=== PATIENT | male | born 1940 | race American Indian/Alaskan Native ===

== ENCOUNTER 2017-02-15 17:27 | Inpatient (IN) | payer MEDICARE ==
[2017-02-15] MEDS ORDERED: NACL 0.9% 500 ML 500 ML IV ONE (18:07)
[2017-02-15 19:30] LABS: Basophils % (Auto) 0.7 % (0.0-1.8); Eosinophils % (Auto) 2.2 % (0.0-4.3); Hematocrit 35.8 % (35.5-45.6); Mean Corpuscular HGB Conc 34 % (32-34); Mean Corpuscular Hemoglobin 32 pg (28-32); Mean Corpuscular Volume 96 fl (84-94); Platelet Count 252 K/mm3 (140-440); Red Blood Count 3.75 M/mm3 (3.65-5.03); Red Cell Distribution Width 14.9 % (13.2-15.2); White Blood Count 6.7 K/mm3 (4.5-11.0)
[2017-02-15 19:42] LABS: INR 1.05 (0.87-1.13)
[2017-02-15 19:51] LABS: Albumin 3.5 g/dL (3.9-5); Albumin/Globulin Ratio 0.8 %; Bilirubin,Total 0.5 mg/dL (0.1-1.2); Calcium 8.9 mg/dL (8.4-10.2); Chloride 104.8 mmol/L (98-107); Total Protein 7.7 g/dL (6.3-8.2)
[2017-02-15 20:14] LABS: Potassium 4.3 mmol/L (3.6-5.0)
[2017-02-15 22:30] LABS: Bilirubin,Urine NEG (Negative); Blood,Urine NEG (Negative); Ketones,Urine NEG (Negative); Leukocyte Esterase,Urine NEG (Negative); Nitrite,Urine NEG (Negative); Protein,Urine <15 mg/dL mg/dL (Negative); RBC,Urine < 1.0 /HPF (0.0-6.0); Urobilinogen,Urine < 2.0 mg/dL (<2.0)
--- NOTE | 2017-02-16 01:25 | Emergency Department Report ---
ED Extremity Problem HPI - General Chief complaint: Extremity Problem,Nontraumatic Stated complaint: RT LEG SWELLING Time Seen by Provider: 02/15/17 19:49 Source: patient, EMS Mode of arrival: Stretcher Limitations: Physical Limitation - History of Present Illness MD Complaint: extremity pain, extremity swelling -: Gradual, week(s) (2) Location: right, lower extremity History of Same: Yes -: Yes myalgia Radiation: distal Severity scale (0 -10): 5 Quality: burning, sharp Consistency: constant Improves with: immobilization, elevation Worsens with: palpation Associated Symptoms: denies other symptoms - Related Data Home Medications Medication Instructions Recorded Confirmed Last Taken Aspirin [Baby Aspirin] 81 mg PO DAILY 03/23/13 03/23/13 03/23/13 Baclofen [Lioresal] 10 mg PO BID 03/23/13 03/23/13 03/23/13 Furosemide [Furosemide ORAL LIQ] 40 mg PO QDAY 03/23/13 03/23/13 03/23/13 Gabapentin [Neurontin] 300 mg PO Q8H 03/23/13 03/23/13 03/23/13 Iron 18 mg PO QDAY 03/23/13 03/23/13 03/23/13 Potassium Chloride 10 meq PO QDAY 03/23/13 03/23/13 03/23/13 amLODIPine [Norvasc] 10 mg PO DAILY 03/23/13 03/23/13 03/23/13 Allergies Allergy/AdvReac Type Severity Reaction Status Date / Time diclofenac [Diclofenac] Allergy Rash Verified 03/23/13 22:50 ED Review of Systems ROS: Stated complaint: RT LEG SWELLING Other details as noted in HPI Constitutional: denies: chills, fever Eyes: denies: eye pain, eye discharge, vision change ENT: denies: ear pain, throat pain Respiratory: denies: cough, shortness of breath, wheezing Cardiovascular: denies: chest pain, palpitations Endocrine: no symptoms reported Gastrointestinal: denies: abdominal pain, nausea, diarrhea Genitourinary: denies: urgency, dysuria Musculoskeletal: denies: back pain, joint swelling, arthralgia Skin: rash, lesions Neurological: denies: headache, weakness, paresthesias Psychiatric: denies: anxiety, depression Hematological/Lymphatic: denies: easy bleeding, easy bruising ED Past Medical Hx - Past Medical History Previous Medical History?: Yes Hx Hypertension: Yes Hx Diabetes: Yes Additional medical history: spinal disorder - Surgical History Past Surgical History?: Yes Additional Surgical History: c1-c4 fusion carpal tunnel bilat decompression nerves hands - Social History Smoking Status: Never Smoker Substance Use Type: None - Medications Home Medications: Home Medications Medication Instructions Recorded Confirmed Last Taken Type Aspirin [Baby Aspirin] 81 mg PO DAILY 03/23/13 03/23/13 03/23/13 History Baclofen [Lioresal] 10 mg PO BID 03/23/13 03/23/13 03/23/13 History Furosemide [Furosemide ORAL LIQ] 40 mg PO QDAY 03/23/13 03/23/13 03/23/13 History Gabapentin [Neurontin] 300 mg PO Q8H 03/23/13 03/23/13 03/23/13 History Iron 18 mg PO QDAY 03/23/13 03/23/13 03/23/13 History Potassium Chloride 10 meq PO QDAY 03/23/13 03/23/13 03/23/13 History amLODIPine [Norvasc] 10 mg PO DAILY 03/23/13 03/23/13 03/23/13 History ED Physical Exam - General Limitations: Physical Limitation General appearance: alert, in no apparent distress - Head Head exam: Present: atraumatic, normocephalic - Eye Eye exam: Present: normal appearance - ENT ENT exam: Present: mucous membranes moist - Neck Neck exam: Present: normal inspection - Respiratory Respiratory exam: Present: normal lung sounds bilaterally, other (Murmur 3/6 systolic ejection). Absent: respiratory distress - Cardiovascular Cardiovascular Exam: Present: regular rate, normal rhythm. Absent: systolic murmur, diastolic murmur, rubs, gallop - GI/Abdominal GI/Abdominal exam: Present: soft, normal bowel sounds - Rectal Rectal exam: Present: deferred - Extremities Exam Extremities exam: Present: normal inspection - Back Exam Back exam: Present: normal inspection - Neurological Exam Neurological exam: Present: alert, oriented X3 - Psychiatric Psychiatric exam: Present: normal affect, normal mood - Skin Skin exam: Present: warm, dry, intact, normal color. Absent: rash ED Course Vital Signs 02/15/17 02/15/17 02/15/17 18:03 20:00 21:16 Temperature 97.7 F Pulse Rate 70 72 Respiratory 16 20 20 Rate Blood Pressure 162/73 Blood Pressure 168/77 [Left] O2 Sat by Pulse 100 97 100 Oximetry 02/15/17 02/15/17 22:00 23:55 Temperature Pulse Rate 73 72 Respiratory 20 20 Rate Blood Pressure Blood Pressure 171/81 167/72 [Left] O2 Sat by Pulse 98 98 Oximetry - Consultations Consultation #1: 02/16/17 01:22 Called hospitalist and patient to be admitted due to cellulitis and concern for osteomyelitis with elevated sed rate in the 60s. ED Medical Decision Making - Lab Data Result diagrams: 02/15/17 19:20 02/15/17 19:20 - Radiology Data Radiology results: pending interpreted by me: View obscured by tissue thickness but 2nd digit distal joint may be lytic. - Medical Decision Making We will do clindamycin IV here and admit patient for cellulitis and possible osteomyelitis. D/W Hospitalist. Critical care attestation.: If time is entered above; I have spent that time in minutes in the direct care of this critically ill patient, excluding procedure time. ED Disposition Clinical Impression: Cellulitis of right leg, Chronic venous hypertension (idiopathic) with other complications of right lower extremity, Osteomyelitis of ankle or foot Disposition: OP ADMIT IP TO THIS HOSP Is pt being admited?: Yes Does the pt Need Aspirin: No Condition: Stable Referrals: PRIMARY CARE, [Primary Care Provider] - 3-5 Days
[2017-02-16] MEDS ORDERED: CATAPRES PO ONE (02:11)
[2017-02-16] MEDS ORDERED: MORPHINE IV PRN (02:40)
[2017-02-16] MEDS ORDERED: ZOFRAN IV PRN (02:41)
[2017-02-16] MEDS ORDERED: TYLENOL PO PRN (02:41)
[2017-02-16] MEDS ORDERED: NACL 0.9% 1000 ML 1,000 ML IV SCH ×2 (03:00→18:00)
[2017-02-16] MEDS ORDERED: VANCOMYCIN PHARMACY TO DOSE IV SCH (03:00)
[2017-02-16] MEDS ORDERED: VANCOMYCIN 2,000 MG in NACL 0.9% 500 ML 500 ML IV ONE (04:00)
[2017-02-16] MEDS: NEURONTIN PO SCH ×3 (04:19→21:57)
--- NOTE | 2017-02-16 04:29 | History and Physical Report ---
CHIEF COMPLAINT: Pain, swelling and foul smelling of the right lower extremity. HISTORY OF PRESENT ILLNESS: The patient is a 76-year-old male who said he has not been taking care of his lower extremity that has had some problems before and presented with pain and swelling with foul smelling of the right lower extremity. The patient also has difficulty ambulating with the right lower extremity. There was no history of recent trauma. The patient denied history of fever or chills. Denies history of shortness of breath or chest pain. PAST MEDICAL HISTORY: Pertinent for hypertension, spinal disorder. The Emergency Room record shows that patient has past history of diabetes mellitus. The patient denied history of diabetes mellitus. States he has also past history of deep vein thrombosis. PAST SURGICAL HISTORY: Pertinent for C1 through C4 fusion surgery. Also carpal tunnel surgery bilaterally. FAMILY HISTORY: Noncontributory. SOCIAL HISTORY: The patient does not smoke, does not drink alcohol and does not use illicit drugs. MEDICATIONS: The patient is on aspirin 81 mg daily, baclofen 10 mg by mouth twice daily, furosemide 40 mg by mouth daily, Neurontin 300 mg by mouth every 8 hours, iron tablet 18 mg by mouth daily, potassium chloride 10 mEq by mouth daily, Norvasc 10 mg by mouth daily. ALLERGIES: THE PATIENT IS ALLERGIC TO DICLOFENAC. REVIEW OF SYSTEMS: CONSTITUTIONAL: There is no fever, no chills, no diaphoresis. HEENT: There is no headache or sore throat. CARDIOVASCULAR: There is no chest pain or orthopnea. RESPIRATORY: There is no shortness of breath or cough. GASTROINTESTINAL: There is no nausea, no vomiting. No abdominal pain, diarrhea or constipation. NEUROLOGICAL: There is no numbness, no dizziness, no altered mental status. MUSCULOSKELETAL: Swelling in the right lower extremity noted. Pain in the right lower extremity noted. Redness of the right lower extremity noted. Foul smelling nature of the right extremity noted. DERMATOLOGICAL: Redness of the right lower extremity noted. No fluid, no itching. GENITOURINARY: There is no dysuria, hematuria, or flank pain. Rest of system review is normal. PHYSICAL EXAMINATION: GENERAL: At the time of exam, the patient was found to be alert, oriented x 3 and not in acute distress. VITAL SIGNS: Shows normal temperature with pulse of 66, respirations 18, blood pressure 191/78, O2 sat of 97% on room air. HEENT: Showed pupils to be equal, round, reactive to light and accommodation. Extraocular muscles are intact. NECK: Supple with no JVD or carotid bruit. CARDIOVASCULAR: Show first and second heart sounds with no gallops or murmur. RESPIRATORY: Showed good air entry on both sides of the lungs with no abnormal breath sounds. GASTROINTESTINAL: Show abdomen to be full, soft, nontender with no organomegaly or rigidity. NEUROLOGIC: Shows no focal deficit. MUSCULOSKELETAL: Shows swelling of the right lower extremity with redness and white patches on the medication application put on the right lower extremity, and also the right lower extremity is foul smelling. DERMATOLOGICAL: Show redness of the right lower extremity. GENITOURINARY: Show no costovertebral angle tenderness. PERTINENT LABORATORY AND IMAGING STUDIES: The patient had urinalysis done that came back unremarkable. The patient's chemistry shows elevated BUN of 31 with elevated creatinine of 2.3 and slightly low albumin of 3.5. The patient's CBC showed normal white count, normal hemoglobin and normal hematocrit. CBC differential showed elevated monocyte count of 9.2%. IMAGING STUDIES: The patient had x-ray of the right foot done that shows denaturing of the bones suspicious for possible osteomyelitis. DIAGNOSES: 1. Cellulitis of the right lower extremity. Rule out osteomyelitis. 2. Renal failure. PLAN: The patient will be admitted to medical floor and will have basic metabolic panel done in the morning. The patient will be on Tylenol 650 mg by mouth every 4 hours for fever and headache and will be on IV Zosyn 3.375 grams q. 6 hours. The patient will also be on IV vancomycin with pharmacy to dose and will be on IV normal saline at 75 mL an hour. The patient will also be on IV Zofran 4 mg every 8 hours as needed for nausea and vomiting and IV morphine 2 mg every 4 hours for pain. DVT prophylaxis will be through heparin 5000 units q. 12 hours subcutaneously. The patient's home medications will be reconciled and started accordingly. The patient will have Accu-Chek before meals and at bedtime until we determine whether the patient has diabetes or not. Meanwhile, the patient will be on renal diet for now. The patient will have wound care nurse consult for management of the right lower extremity wound. JOB# [id number] OCN/NTS
[2017-02-16] MEDS ORDERED: ZOSYN/NS 3.375GM/50ML 3.375 GM/50 ML BAG IV SCH (06:00)
--- NOTE | 2017-02-16 09:46 | XRay Report ---
AP CHEST: HISTORY: Sepsis No comparison. Mild to moderate cardiomegaly is evident. Normal pulmonary vascularity. There is a focal opacity in the lingula which probably represents scarring although other etiology cannot be excluded. There is no evidence for pneumonia, pleural effusion or pneumothorax. The bony structures are unremarkable. IMPRESSION: Cardiomegaly. Focal opacity in the lingula which is most likely chronic. Consider followup CT chest with contrast.
--- NOTE | 2017-02-16 09:46 | XRay Report ---
RIGHT FOOT, 3 VIEWS History: Foot infection, swelling. Findings: No comparison. The soft tissues are severely abnormal. There appears to be diffuse skin thickening or edema. This may represent a severe cellulitis. The bony structures are poorly evaluated on this exam secondary to the diffuse skin abnormalities. Grossly there is no evidence for fracture, dislocation or erosive joint pathology. Subtle findings of osteomyelitis cannot be excluded on this exam. No advanced bony destruction. Impression: No definite findings of osteomyelitis on x-ray. If further evaluation is needed, MRI with contrast or triple phase bone scan may prove useful. Probable cellulitis.
[2017-02-16] MEDS: ZOSYN/NS 2.25 GM/50ML 2.25 GM/50 ML BAG IV SCH ×3 (10:09→18:00)
[2017-02-16 13:46] LABS: Calcium 9.1 mg/dL (8.4-10.2)
--- NOTE | 2017-02-16 15:45 | Event Note ---
Date: 02/16/17 Pt seen and examined A/P - Cellulitis right foot with possible dry gangrene. Xray showed no evidence of Osteo. Will get MRI. surgical consult obtained continue with local wound care. - Acute on chronic renal failure - iv hydration. Renal US nephrology consult. Nephrology consult - Dehydration with hypernatremia and hyperchloremia - iv hydration
--- NOTE | 2017-02-16 16:40 | Consultation ---
History of Present Illness - Reason for Consult Consult date: 02/16/17 acute renal failure - History of Present Illness Mr. Sena is a 76yo with hypertension who presented to the ED with right leg swelling, pain and odor. He reports chronic lower extremity edema and wears compression stockings. He reports a prior history of kidney disease. He states that he had been referred to a milk treater in the past but cannot recall name. He denies fever, chills, nausea, vomiting, chest pain and SOB. He denies a history of NSAID use, hemoptysis, hematuria, epistaxis. Past History Past Medical History: hypertension, other (reports hx of DVT and carotid artery disease) Past Surgical History: Other (cervial spine) Social history: no significant social history Family history: no significant family history Medications and Allergies Allergies Allergy/AdvReac Type Severity Reaction Status Date / Time diclofenac [Diclofenac] Allergy Rash Verified 03/23/13 22:50 Home Medications Medication Instructions Recorded Confirmed Last Taken Type Baclofen [Lioresal] 10 mg PO BID 03/23/13 02/16/17 03/23/13 History Furosemide [Lasix] 20 mg PO DAILY 02/16/17 02/16/17 Unknown History Losartan [Cozaar] 50 mg PO QDAY 02/16/17 02/16/17 Unknown History Active Meds: Active Medications Acetaminophen (Tylenol) 650 mg PO Q4H PRN PRN Reason: For Pain/Fever/Headache Amlodipine Besylate (Norvasc) 10 mg PO DAILY [facility] Aspirin (Baby Aspirin) 81 mg PO DAILY [facility] Ferrous Sulfate (Feosol) 325 mg PO QDAY [facility] Furosemide (Lasix) 20 mg PO DAILY [facility] Gabapentin (Neurontin) 300 mg PO Q8HR [facility] Last Admin: 02/16/17 04:19 Dose: 300 mg Heparin Sodium (Porcine) (Heparin) 5,000 unit SUB-Q Q12HR [facility] Piperacillin Sod/Tazobactam Sod (Zosyn/Ns 2.25 Gm/50ml) 2.25 gm in 50 mls @ 100 mls/hr IV Q6HR [facility] Last Admin: 02/16/17 12:33 Dose: Not Given Dextrose/Sodium Chloride (D5/0.45ns) 1,000 mls @ 125 mls/hr IV DIRECT [facility] Influenza Virus Vaccine Quadrival (Fluarix Quad [id number](36 Mos+)) 0.5 ml IM .ONCE ONE Stop: 02/17/17 12:01 Losartan Potassium (Cozaar) 50 mg PO QDAY [facility] Morphine Sulfate (Morphine) 2 mg IV Q4H PRN PRN Reason: Pain, Moderate (4-6) Ondansetron HCl (Zofran) 4 mg IV Q8H PRN PRN Reason: Nausea And Vomiting Sodium Hypochlorite (Dakin's Full Strength) 1 applic TP Q12H [facility] Vancomycin HCl (Vancomycin Pharmacy To Dose) 1 each IV PKCONSULT [facility] PRN Reason: Protocol Review of Systems All systems: negative Musculoskeletal: other (right leg swelling, pain, odor) Exam - Vital Signs Vital signs: Vital Signs Temp Pulse Resp BP Pulse Ox 97.7 F 70 16 162/73 100 02/15/17 18:03 02/15/17 18:03 02/15/17 18:03 02/15/17 18:03 02/15/17 18:03 - General Appearance General appearance: well-developed, well-nourished EENT: ATNC Respiratory: Clear to Ascultation Heart: regular, S1S2 Gastrointestinal: Present: obese. Absent: tenderness, distended Integumentary: hyperpigmentation, hyperkeratosis Musculoskeletal: Present: other (bilateral leg edema; right lower extremity w/ malodorous, hyperkeratosis, hyperpigmented skin ) Psychiatric: cooperative Results - Lab Results 02/15/17 19:20 02/16/17 12:32 Most recent lab results Calcium 9.1 mg/dL (8.4-10.2) 02/16/17 12:32 Assessment and Plan Impression * Acute kidney injury secondary to prerenal azotemia vs probable chronic kidney disease * Lower extremity cellulitis * R/O osteomyelitis * Hypertension * Bradycardia * Hypernatermia Plan: * Patient likely with underlying CKD related to hypertensive nephropathy * Agree with IVF for volume repletion * Will obtain serologic work up and urine studies * Await renal u/s * Abx per primary team * Dose medications for renal function * Avoid potential nephrotoxins * Telemetry monitoring ordered in light of HR in 40-50s. He is not receiving in AV liam blocking agents (only received clonidine 0.1 x 1 dose at 0300). Consider cardiology evaluation if bradycardia persists.
--- NOTE | 2017-02-16 16:49 | Consultation ---
History of Present Illness Consult date: 02/16/17 Reason for consult: other - History of present illness History of present illness: 76 yo male with purulent drainage from his right heel. He does not have DM but does have a chronic skin condition. He is not sure what the skin condition is called. Past History Past Medical History: hypertension Medications and Allergies Allergies Allergy/AdvReac Type Severity Reaction Status Date / Time diclofenac [Diclofenac] Allergy Rash Verified 03/23/13 22:50 Home Medications Medication Instructions Recorded Confirmed Last Taken Type Baclofen [Lioresal] 10 mg PO BID 03/23/13 02/16/17 03/23/13 History Furosemide [Lasix] 20 mg PO DAILY 02/16/17 02/16/17 Unknown History Losartan [Cozaar] 50 mg PO QDAY 02/16/17 02/16/17 Unknown History Active Meds: Active Medications Acetaminophen (Tylenol) 650 mg PO Q4H PRN PRN Reason: For Pain/Fever/Headache Amlodipine Besylate (Norvasc) 10 mg PO DAILY [facility] Aspirin (Baby Aspirin) 81 mg PO DAILY [facility] Ferrous Sulfate (Feosol) 325 mg PO QDAY [facility] Furosemide (Lasix) 20 mg PO DAILY [facility] Gabapentin (Neurontin) 300 mg PO Q8HR [facility] Last Admin: 02/16/17 04:19 Dose: 300 mg Heparin Sodium (Porcine) (Heparin) 5,000 unit SUB-Q Q12HR [facility] Piperacillin Sod/Tazobactam Sod (Zosyn/Ns 2.25 Gm/50ml) 2.25 gm in 50 mls @ 100 mls/hr IV Q6HR [facility] Last Admin: 02/16/17 12:33 Dose: Not Given Dextrose/Sodium Chloride (D5/0.45ns) 1,000 mls @ 125 mls/hr IV DIRECT [facility] Influenza Virus Vaccine Quadrival (Fluarix Quad [id number](36 Mos+)) 0.5 ml IM .ONCE ONE Stop: 02/17/17 12:01 Losartan Potassium (Cozaar) 50 mg PO QDAY [facility] Morphine Sulfate (Morphine) 2 mg IV Q4H PRN PRN Reason: Pain, Moderate (4-6) Ondansetron HCl (Zofran) 4 mg IV Q8H PRN PRN Reason: Nausea And Vomiting Sodium Hypochlorite (Dakin's Full Strength) 1 applic TP Q12H [facility] Vancomycin HCl (Vancomycin Pharmacy To Dose) 1 each IV PKCONSULT [facility] PRN Reason: Protocol Review of Systems All systems: negative Exam Vital Signs Temp Pulse Resp BP Pulse Ox 97.7 F 70 16 162/73 100 02/15/17 18:03 02/15/17 18:03 02/15/17 18:03 02/15/17 18:03 02/15/17 18:03 - General physical appearance Positive: well developed, well nourished, no distress - Eyes Positive: PERRL, normal occular movement - ENT Positive: normal pinna, normal nares, normal mucosa, no hearing loss, no congestion - Neck Positive: no masses, no bruits, trachea midline, no venous distension - Respiratory Positive: normal expansion, normal respiratory effort, clear to auscultation - Cardiovascular Rhythm: regular Heart Sounds: Present: S1 & S2. Absent: rub, click - Extremities Extremities: no ischemia, pulses symmetrical, No edema - Abdomen Abdomen: Present: soft, bowel sounds normal. Absent: tender, distended Hernia: none - Genitourinary Male Genitourinary: deferred - Integumentary other (The skin of his right leg is covered with thick, somewhat soft hyperkeratinized tissue which can be fairly easily pulled off in flakes. His right heel is oozing purulent fluid underneath the thick, hyperkeratinized tissue.) - Neurologic Neurologic: alert and oriented to time, place and person, motor strength and sensation are grossly intact - Musculoskeletal normal gait, normal posture - Psychiatric Psychiatric: appropriate mood/affect, intact judgment & insight Results - Labs 02/15/17 19:20 02/16/17 12:32 Abnormal lab results 02/16/17 Range/Units 12:32 Sodium 149 H (137-145) mmol/L Chloride 108.0 H (98-107) mmol/L BUN 27 H (9-20) mg/dL Creatinine 2.1 H (0.8-1.5) mg/dL Diabetes panel 02/16/17 Range/Units 12:32 Sodium 149 H (137-145) mmol/L Potassium 4.0 (3.6-5.0) mmol/L Chloride 108.0 H (98-107) mmol/L Carbon Dioxide 25 (22-30) mmol/L BUN 27 H (9-20) mg/dL Creatinine 2.1 H (0.8-1.5) mg/dL Glucose 97 (75-100) mg/dL Calcium 9.1 (8.4-10.2) mg/dL Calcium panel 02/16/17 Range/Units 12:32 Calcium 9.1 (8.4-10.2) mg/dL Pituitary panel 02/16/17 Range/Units 12:32 Sodium 149 H (137-145) mmol/L Potassium 4.0 (3.6-5.0) mmol/L Chloride 108.0 H (98-107) mmol/L Carbon Dioxide 25 (22-30) mmol/L BUN 27 H (9-20) mg/dL Creatinine 2.1 H (0.8-1.5) mg/dL Glucose 97 (75-100) mg/dL Calcium 9.1 (8.4-10.2) mg/dL Adrenal panel 02/16/17 Range/Units 12:32 Sodium 149 H (137-145) mmol/L Potassium 4.0 (3.6-5.0) mmol/L Chloride 108.0 H (98-107) mmol/L Carbon Dioxide 25 (22-30) mmol/L BUN 27 H (9-20) mg/dL Creatinine 2.1 H (0.8-1.5) mg/dL Glucose 97 (75-100) mg/dL Calcium 9.1 (8.4-10.2) mg/dL Assessment and Plan 1) Right heel abscess/infection 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 2) NPO after MN 3) I will send some of the hyperkeratinized tissue for tissue dx.
[2017-02-16] MEDS ORDERED: COZAAR PO SCH (17:00)
[2017-02-16] MEDS ORDERED: D5/0.45NS 1,000 ML IV SCH (17:00)
[2017-02-16] MEDS: BABY ASPIRIN PO SCH (18:00)
[2017-02-16] MEDS: FEOSOL PO SCH (18:00)
[2017-02-16] MEDS: NORVASC PO SCH (18:00)
[2017-02-16] MEDS: HEPARIN SUB-Q SCH ×2 (19:00→21:57)
[2017-02-16] MEDS ORDERED: DAKIN'S HALF STRENGTH TP PRN (19:45)
[2017-02-16] MEDS ORDERED: DAKIN'S FULL STRENGTH TP SCH (22:00)
[2017-02-17] MEDS: ZOSYN/NS 2.25 GM/50ML 2.25 GM/50 ML BAG IV SCH ×4 (00:30→22:56)
[2017-02-17] MEDS: NEURONTIN PO SCH ×3 (05:27→22:55)
[2017-02-17 06:50] LABS: Basophils % (Auto) 0.6 % (0.0-1.8); Eosinophils % (Auto) 2.9 % (0.0-4.3); Hematocrit 35.4 % (35.5-45.6); Hemoglobin 11.8 gm/dl (11.8-15.2); Mean Corpuscular HGB Conc 34 % (32-34); Mean Corpuscular Hemoglobin 32 pg (28-32); Mean Corpuscular Volume 95 fl (84-94); Platelet Count 221 K/mm3 (140-440); Red Blood Count 3.74 M/mm3 (3.65-5.03); Red Cell Distribution Width 14.7 % (13.2-15.2); White Blood Count 6.2 K/mm3 (4.5-11.0)
[2017-02-17 07:05] LABS: Albumin/Globulin Ratio 0.8 %; Bilirubin,Total 0.4 mg/dL (0.1-1.2); Calcium 8.7 mg/dL (8.4-10.2); Chloride 103.7 mmol/L (98-107); Potassium 3.8 mmol/L (3.6-5.0); Total Protein 6.6 g/dL (6.3-8.2)
--- NOTE | 2017-02-17 07:37 | Progress Note ---
Assessment and Plan Impression * Acute kidney injury secondary to prerenal azotemia vs probable chronic kidney disease * Lower extremity cellulitis * R/O osteomyelitis * Hypertension, uncontrolled * Bradycardia, persistent * Hypernatermia Plan: * Patient likely with underlying CKD related to hypertensive nephropathy * Continue IVF - will decrease reate * Await pending serologic work up and urine studies * Await renal u/s * Abx per primary team * Dose medications for renal function * Avoid potential nephrotoxins * Consider cardiology evaluation if bradycardia persists. Patient is not receiving AV liam blocking agents Subjective Date of service: 02/17/17 Objective - General Appearance General appearance: well-developed, well-nourished EENT: ATNC Respiratory: Present: Clear to Ascultation Cardiology: regular, S1S2 Gastrointestinal: no tenderness, no distended, obese Integumentary: hyperpigmentation (malodorous drainage of right LE), hyperkeratosis Musculoskeletal: other (Bilateral LE edema ) Psychiatric: cooperative - Lab 02/17/17 06:20 02/17/17 06:20 Most recent lab results Calcium 8.7 mg/dL (8.4-10.2) 02/17/17 06:20
--- NOTE | 2017-02-17 07:40 | Ultrasound Report ---
ULTRASOUND RENAL BILATERAL HISTORY: Acute renal failure. TECHNIQUE: transabdominal ultrasound with color Doppler interrogation. FINDINGS: The right kidney measures 11.2 x 7.0 x 6.0cm. Right renal cortex: 2.0cm. There are 4 simple appearing cysts in the mid to superior right kidney measuring 1.0 cm, 1.1 cm, 2.3 cm and 4.3 cm. The left kidney measures 11.0 x 8.3 x 5.2cm. Left renal cortex: 1.9cm. There are 5 simple appearing cysts in the mid to inferior left kidney measuring 1.3 cm, 1.9 cm, 2.2 cm, 2.7 cm, and 2.9 cm. Both kidneys demonstrate increased renal parenchymal echotexture consistent with nonspecific renal parenchymal disease. There is no evidence for nephrolithiasis, hydronephrosis, hypervascular mass or perinephric fluid. The bladder is partially distended and within normal limits. IMPRESSION: Multiple bilateral renal cysts. Echogenic kidneys consistent with nonspecific renal parenchymal disease. No obstructive uropathy.
[2017-02-17] MEDS ORDERED: LASIX PO SCH (10:00)
[2017-02-17] MEDS: BABY ASPIRIN PO SCH (10:06)
[2017-02-17] MEDS: NORVASC PO SCH (10:06)
[2017-02-17] MEDS: FEOSOL PO SCH (10:09)
[2017-02-17] MEDS: HEPARIN SUB-Q SCH ×2 (10:10→22:57)
--- NOTE | 2017-02-17 11:15 | Consultation ---
History of Present Illness - Reason for Consult Consult date: 02/17/17 foot infection Requesting physician: WARREN CURRAN - History of Present Illness 76 years old male with history of hypertension, admitted on due to worsening dry foot and leg swelling, tenderness, and drainage. Patient has dry leg lymphedema and was told to wear compressive stockings. He reports that after 2 weeks of wearing the stockings he noticed increase edema and drainage of foul- smelling secretion from the right foot. Patient denies any fever or chills now sure vomiting or diarrhea. Patient denies any shortness of breath cough or respiratory symptoms. In the emergency room, initial temperature was 97.7, HR 70, BP 162/73. WBC 6.7. CR 2.3. UA neg. Current Antimicrobials: Zosyn 02/16 Vancomycin 02/16 Microbiology: Blood cultures: 02/15 ngtd Urine cultures: 02/15 10-100K mixed Past History Past Medical History: hypertension, other (reports hx of DVT and carotid artery disease). denies: sarcoidosis (right foot lymphedema ) Past Surgical History: Other (cervial spine) Social history: no significant social history Family history: no significant family history Medications and Allergies Allergies Allergy/AdvReac Type Severity Reaction Status Date / Time diclofenac [Diclofenac] Allergy Rash Verified 03/23/13 22:50 Home Medications Medication Instructions Recorded Confirmed Last Taken Type Baclofen [Lioresal] 10 mg PO BID 03/23/13 02/16/17 03/23/13 History Furosemide [Lasix] 20 mg PO DAILY 02/16/17 02/16/17 Unknown History Losartan [Cozaar] 50 mg PO QDAY 02/16/17 02/16/17 Unknown History Active Meds: Active Medications Acetaminophen (Tylenol) 650 mg PO Q4H PRN PRN Reason: For Pain/Fever/Headache Amlodipine Besylate (Norvasc) 10 mg PO DAILY [facility] Last Admin: 02/17/17 10:06 Dose: 10 mg Aspirin (Baby Aspirin) 81 mg PO DAILY [facility] Last Admin: 02/17/17 10:06 Dose: 81 mg Ferrous Sulfate (Feosol) 325 mg PO QDAY [facility] Last Admin: 02/17/17 10:09 Dose: 325 mg Gabapentin (Neurontin) 300 mg PO Q8HR [facility] Last Admin: 02/17/17 05:27 Dose: 300 mg Heparin Sodium (Porcine) (Heparin) 5,000 unit SUB-Q Q12HR [facility] Last Admin: 02/17/17 10:10 Dose: 5,000 unit Piperacillin Sod/Tazobactam Sod (Zosyn/Ns 2.25 Gm/50ml) 2.25 gm in 50 mls @ 100 mls/hr IV Q6HR [facility] Last Admin: 02/17/17 05:27 Dose: 100 mls/hr Sodium Chloride (Nacl 0.9% 1000 Ml) 1,000 mls @ 125 mls/hr IV DIRECT [facility] Last Admin: 02/17/17 05:33 Dose: 125 mls/hr Vancomycin HCl 1,250 mg/ (Sodium Chloride) 262.5 mls @ 166.667 mls/hr IV ONCE ONE Stop: 02/17/17 13:34 Influenza Virus Vaccine Quadrival (Fluarix Quad [id number](36 Mos+)) 0.5 ml IM .ONCE ONE Stop: 02/17/17 12:01 Morphine Sulfate (Morphine) 2 mg IV Q4H PRN PRN Reason: Pain, Moderate (4-6) Ondansetron HCl (Zofran) 4 mg IV Q8H PRN PRN Reason: Nausea And Vomiting Sodium Hypochlorite (Dakin's Half Strength) 1 applic TP Q12H PRN PRN Reason: Wound Care Vancomycin HCl (Vancomycin Pharmacy To Dose) 1 each IV PKCONSULT LEONID PRN Reason: Protocol Review of Systems All systems: negative (right foot/leg edema, tenderness, drainage of foul- smelling) Physical Examination - Physical Exam Narrative exam: General appearance: Alert in NAD, conversant Eyes: anicteric sclerae, moist conjunctivae; no lid-lag; PERRLA HENT: Atraumatic; oropharynx clear Neck: Trachea midline; supple, no thyromegaly or lymphadenopathy Lungs: CTA, with normal respiratory effort and no intercostal retractions CV: RRR, no murmurs Abdomen: Soft, non-tender; no masses or hepatosplenomegaly Extremities: +marked right foot deformity with extensive skin papillomatous, fissuring and verrucose changes and heel area purulence with foul-smelling drainage and ankle edema Skin: no rash Psych: Appropriate affect, alert and oriented to person, place and time. Neuro: alert and oriented x 3. Moving all extermities Lines: No CVL / PICC - Constitutional Vitals: Vital Signs Temp Pulse Resp BP Pulse Ox 98.4 F 62 24 187/78 96 02/17/17 07:53 02/17/17 10:06 02/17/17 07:53 02/17/17 10:06 02/17/17 07:53 Temperature -Last 24 Hours Temperature 98.4 F Temperature 97.6 F Temperature 97.9 F Temperature 97.5 F Temperature 98 F Temperature 98.0 F Temperature 98.0 F Results - Labs CBC & Chem 7: 02/17/17 06:20 02/17/17 06:20 Labs: Abnormal lab results 02/16/17 02/17/17 02/17/17 Range/Units 12:32 06:20 06:20 Hct 35.4 L (35.5-45.6) % MCV 95 H (84-94) fl [place] % (Auto) 8.5 H (0.0-7.3) % Sodium 149 H (137-145) mmol/L Chloride 108.0 H (98-107) mmol/L BUN 27 H 26 H (9-20) mg/dL Creatinine 2.1 H 1.9 H (0.8-1.5) mg/dL Glucose 112 H (75-100) mg/dL Albumin 3.0 L (3.9-5) g/dL Assessment and Plan Assessment: 1) Right foot/ankle chronic lymphedema/elephantiasis verrucosa with most likely superimporsed soft tissue infection 2) ORION - better 3) Abnormal CXR ? lingular opacity Plan: -follow-up blood cultures -obtain procalcitonin, C-reactive protein (CRP) -continue renally dosed zosyn and vancomycin -CT foot eval for abscess formation -wound care eval - please obtain deep wound cx Thank you Dr Curran for your consultation, will follow up with you. Karen Parrish MD Infectious Diseases Specialist [facility] M [phone] O [phone]
[2017-02-17] MEDS ORDERED: VANCOMYCIN 1,250 MG in NACL 0.9% 250ML 250 ML IV ONE (12:00)
[2017-02-17] MEDS ORDERED: Fluarix Quad 2017-2018(36 MOS+) IM ONE (12:00)
--- NOTE | 2017-02-17 12:49 | Anesthesia Consultation ---
Anesthesia Consult and Med Hx Date of service: 02/17/17 - Airway Anesthetic Teeth Evaluation: Poor (multiple broken, missing teeth) ROM Head & Neck: Adequate Mental/Hyoid Distance: Adequate Mallampati Class: Class III Intubation Access Assessment: Possibly Difficult - Pre-Operative Health Status ASA Pre-Surgery Classification: ASA3 Proposed Anesthetic Plan: General - Pulmonary Hx Sleep Apnea: Yes (no CPAP) - Cardiovascular System Hx Hypertension: Yes Hx Peripheral Vascular Disease: Yes (right heel wound) - Endocrine Hx Renal Disease: Yes (chronic kidney disease) Hx End Stage Renal Disease: No - Other Systems Hx Obesity: Yes (Morbid obesity, BMI 42.1)
--- NOTE | 2017-02-17 12:50 | Anesthesia Day of Surgery ---
Anesthesia Day of Surgery - Day of Surgery Patient Examined: Yes Patient H&P Reviewed: Yes Patient is NPO: Yes
[2017-02-17] MEDS ORDERED: PEPCID IV NR (13:00)
[2017-02-17] MEDS ORDERED: VERSED IV NR (13:00)
--- NOTE | 2017-02-17 15:12 | Progress Note ---
Assessment and Plan - Cellulitis right foot with possible osteomyelitis . Xray showed no evidence of Osteo. MRI ordered but not done as feet cannot fit into machine. Surgical consult obtained continue with local wound care. - Acute on chronic renal failure - Iv hydration. nephrology following. - Hypernatremia and hyperchloremia - IV hydration - Hypertension: Optimize control - Bradycardia with rate in the 60s. Asymptomatic. Avoid BB and CCB. Consult cardiology as pt has a remote h/s of HF.Will get BNP and CXR - DVT PPx with lovenox and GI with Pepcid. Discussed at length with patient's son who is a Supervisor [employer] in [place] and two other sons in the room, wants patient to be transferred to another facility, LTAC in [place] for wound care. Will discussed with CM about transferring pt to LTAC H/o DM Subjective Date of service: 02/17/17 Principal diagnosis: cellulitis with abcess right foot Interval history: no new complaint. Denies any fever Objective - Constitutional Vitals: Vital Signs - 12hr 02/17/17 02/17/17 02/17/17 07:53 10:06 14:40 Temperature 98.4 F 98.7 F Pulse Rate 62 62 67 Respiratory 24 16 Rate Blood Pressure 187/78 187/78 164/85 O2 Sat by Pulse 96 97 Oximetry General appearance: Present: no acute distress, well-nourished - EENT Eyes: PERRL, EOM intact Ears: bilateral: normal - Neck Neck: supple, normal ROM - Respiratory Respiratory effort: normal Respiratory: bilateral: CTA - Breasts Breasts: swelling - Cardiovascular Rhythm: regular Heart Sounds: Present: S1 & S2. Absent: gallop, rub Extremities: pulses intact, No edema, Full ROM Extremity abnormal: other (extensive skin infection of the right foot and hyperremia of the left) - Gastrointestinal General gastrointestinal: Present: soft, non-tender, non-distended, normal bowel sounds - Genitourinary Male genitourinary: normal - Integumentary Integumentary: clear, warm, dry - Musculoskeletal Musculoskeletal: 1, strength equal bilaterally - Neurologic Neurologic: moves all extremities - Psychiatric Psychiatric: memory intact, appropriate mood/affect, intact judgment & insight - Labs CBC & Chem 7: 02/17/17 06:20 02/17/17 06:20 Labs: Abnormal lab results 02/17/17 02/17/17 02/17/17 Range/Units 06:20 06:20 06:20 Hct 35.4 L (35.5-45.6) % MCV 95 H (84-94) fl [place] % (Auto) 8.5 H (0.0-7.3) % BUN 26 H (9-20) mg/dL Creatinine 1.9 H (0.8-1.5) mg/dL Glucose 112 H (75-100) mg/dL C-Reactive Protein 3.70 H (0.00-1.30) mg/dL Albumin 3.0 L (3.9-5) g/dL
--- NOTE | 2017-02-17 15:49 | Cat Scan Report ---
CT of the right lower extremity including the distal leg and foot. History: Lymphedema, evaluate for osteomyelitis. Findings: In addition to axial images, coronal and sagittal reformatted images were obtained. There is diffuse osteopenia throughout the bones of the foot, but no evidence of focal osteolytic process or other radiographic signs of osteomyelitis are seen. Pronounced periarticular osteoporosis is seen at the MTP joints. There is extensive anterior soft tissue edema of the foot but no focal fluid collection is identified. Impression: Diffuse osteopenia with no radiographic signs of osteomyelitis. Severe soft tissue swelling is most pronounced anteriorly.
--- NOTE | 2017-02-17 17:45 | Progress Note ---
Assessment and Plan - Patient Problems (1) Abscess of right heel Current Visit: Yes Status: Acute Plan to address problem: I had a long phone conversation with the pt's son, Dr. Sena, who is a development technician. He was apparently texted a picture of his father's foot and does not want the right heel abscess to be drained. He wants the pt to be transferred to [facility] and wants to pursue conservative measures. I made him aware that if the abscess is not drained expeditiously, his father's course could deteriorate, resulting in a major amputation. Despite this admonition, the son insisted that his father be transferred and that surgery should not be performed. Subjective Date of service: 02/17/17 Patient Reports: Positive: no new complaints Objective Vital Signs - 12hr 02/17/17 02/17/17 02/17/17 07:53 10:06 14:40 Temperature 98.4 F 98.7 F Pulse Rate 62 62 67 Respiratory 24 16 Rate Blood Pressure 187/78 187/78 164/85 O2 Sat by Pulse 96 97 Oximetry - Integumentary other (Right heel was not re-examined.) - Labs 02/17/17 06:20 02/17/17 06:20 Diabetes panel 02/17/17 Range/Units 06:20 Sodium 141 D (137-145) mmol/L Potassium 3.8 (3.6-5.0) mmol/L Chloride 103.7 (98-107) mmol/L Carbon Dioxide 26 (22-30) mmol/L BUN 26 H (9-20) mg/dL Creatinine 1.9 H (0.8-1.5) mg/dL Glucose 112 H (75-100) mg/dL Calcium 8.7 (8.4-10.2) mg/dL AST 11 (5-40) units/L ALT 7 (7-56) units/L Alkaline Phosphatase 68 (35-129) units/L Total Protein 6.6 (6.3-8.2) g/dL Albumin 3.0 L (3.9-5) g/dL Calcium panel 02/17/17 Range/Units 06:20 Calcium 8.7 (8.4-10.2) mg/dL Albumin 3.0 L (3.9-5) g/dL Pituitary panel 02/17/17 Range/Units 06:20 Sodium 141 D (137-145) mmol/L Potassium 3.8 (3.6-5.0) mmol/L Chloride 103.7 (98-107) mmol/L Carbon Dioxide 26 (22-30) mmol/L BUN 26 H (9-20) mg/dL Creatinine 1.9 H (0.8-1.5) mg/dL Glucose 112 H (75-100) mg/dL Calcium 8.7 (8.4-10.2) mg/dL Adrenal panel 02/17/17 Range/Units 06:20 Sodium 141 D (137-145) mmol/L Potassium 3.8 (3.6-5.0) mmol/L Chloride 103.7 (98-107) mmol/L Carbon Dioxide 26 (22-30) mmol/L BUN 26 H (9-20) mg/dL Creatinine 1.9 H (0.8-1.5) mg/dL Glucose 112 H (75-100) mg/dL Calcium 8.7 (8.4-10.2) mg/dL Total Bilirubin 0.40 (0.1-1.2) mg/dL AST 11 (5-40) units/L ALT 7 (7-56) units/L Alkaline Phosphatase 68 (35-129) units/L Total Protein 6.6 (6.3-8.2) g/dL Albumin 3.0 L (3.9-5) g/dL
[2017-02-17] MEDS: NACL 0.9% 1000 ML 1,000 ML IV SCH (23:04)
[2017-02-18] MEDS: NEURONTIN PO SCH ×2 (06:19→15:04)
[2017-02-18] MEDS: ZOSYN/NS 2.25 GM/50ML 2.25 GM/50 ML BAG IV SCH ×5 (06:19→13:04)
[2017-02-18 06:24] LABS: Basophils % (Auto) 0.3 % (0.0-1.8); Eosinophils % (Auto) 2.3 % (0.0-4.3); Hematocrit 33.4 % (35.5-45.6); Hemoglobin 11.5 gm/dl (11.8-15.2); Mean Corpuscular HGB Conc 34 % (32-34); Mean Corpuscular Hemoglobin 33 pg (28-32); Mean Corpuscular Volume 95 fl (84-94); Platelet Count 253 K/mm3 (140-440); White Blood Count 6.9 K/mm3 (4.5-11.0)
[2017-02-18 06:44] LABS: Albumin/Globulin Ratio 0.8 %; Bilirubin,Total 0.4 mg/dL (0.1-1.2); Calcium 8.5 mg/dL (8.4-10.2); Chloride 106.6 mmol/L (98-107); Potassium 3.6 mmol/L (3.6-5.0); Total Protein 6.6 g/dL (6.3-8.2)
[2017-02-18] MEDS: FEOSOL PO SCH (11:05)
[2017-02-18] MEDS: NORVASC PO SCH (11:06)
[2017-02-18] MEDS: BABY ASPIRIN PO SCH (11:06)
[2017-02-18] MEDS: HEPARIN SUB-Q SCH (11:07)
[2017-02-18] MEDS: NACL 0.9% 1000 ML 1,000 ML IV SCH (11:24)
--- NOTE | 2017-02-18 11:34 | Progress Note ---
Assessment and Plan Assessment: 1) Right foot/ankle chronic lymphedema/elephantiasis verrucosa with most likely superimporsed soft tissue infection / heel abscess? -CT foot w/o contrast showed no abscess no osteomyelitis -crp=3.7 2) ORION - better 3) Abnormal CXR ? lingular opacity Plan: -pt refusing debridement by Wound care provider -pt stating my ID management and isolation are overreacting measurements. He believe he has no infection whatsoever. -Pt was reassured of my total respect and understanding about his opinion -continue renally dosed zosyn -change vanco to daptomycin per IMS request -family requesting transferring Please call me back if I could be of any help. Thank you Dr Park for your consultation, will follow up with you. Karen Parrish MD Infectious Diseases Specialist [facility] M [phone] O [phone] Subjective Date of service: 02/18/17 Principal diagnosis: cellulitis with abcess right foot Interval history: Feels ok, expressing disagreement with medical management and isolation. No fever. Current Antimicrobials: Zosyn 02/16 Vancomycin 02/16 Microbiology: Blood cultures: 02/15 ngtd Urine cultures: 02/15 10-100K mixed Objective - Exam Narrative Exam: General appearance: Alert in NAD, conversant Eyes: anicteric sclerae, moist conjunctivae; no lid-lag; PERRLA HENT: Atraumatic; oropharynx clear Neck: Trachea midline; supple, no thyromegaly or lymphadenopathy Lungs: CTA, with normal respiratory effort and no intercostal retractions CV: RRR, no murmurs Abdomen: Soft, non-tender; no masses or hepatosplenomegaly Extremities: +marked right foot deformity with extensive skin papillomatous, fissuring and verrucose changes and heel area purulence with foul-smelling drainage and ankle edema (yesterday exam) Skin: no rash Psych: Appropriate affect, alert and oriented to person, place and time. Neuro: alert and oriented x 3. Moving all extermities Lines: No CVL / PICC - Constitutional Vitals: Vital Signs Temp Pulse Resp BP Pulse Ox 99.9 F H 83 22 148/75 95 02/18/17 07:47 02/18/17 11:06 02/18/17 07:47 02/18/17 11:06 02/18/17 07:47 Temperature -Last 24 Hours Temperature 99.9 F Temperature 99.8 F Temperature 122.0 F Temperature 99.2 F Temperature 98.7 F - Labs CBC & Chem 7: 02/18/17 04:29 02/18/17 04:29 Labs: Abnormal lab results 02/17/17 02/18/17 02/18/17 Range/Units 06:20 04:29 04:29 RBC 3.50 L (3.65-5.03) M/mm3 Hgb 11.5 L (11.8-15.2) gm/dl Hct 33.4 L (35.5-45.6) % MCV 95 H (84-94) fl MCH 33 H (28-32) pg [place] % (Auto) 8.0 H (0.0-7.3) % BUN 22 H (9-20) mg/dL Creatinine 1.9 H (0.8-1.5) mg/dL C-Reactive Protein 3.70 H (0.00-1.30) mg/dL Albumin 3.0 L (3.9-5) g/dL
--- NOTE | 2017-02-18 11:43 | Discharge Summary ---
Providers - Providers Date of Admission: 02/16/17 02:36 Attending physician: RYLIE WIGGINS MD 02/16/17 06:43 Consult to Wound/ET Nurse [CONS] Routine Reason For Exam: wound eval 02/16/17 06:44 Consult to Physician [CONS] Routine Consulting Provider: AUGIE SILVA Reason For Exam: RENAL INSUFFICIENCY Place consult to:: AUGIE SILVA Notified:: YES Phone number called:: Was contact made?: Yes If yes, spoke with:: DESHAUN Time called:: 08:53 02/16/17 16:41 Consult to Physician [CONS] Routine Consulting Provider: VERONIQUE JUNE Reason For Exam: cellulitis with abcess right foot Place consult to:: Veronique June Notified:: YES Was contact made?: Yes Comment:: will see 02/16/17 17:37 Consult to Physician [CONS] Routine Consulting Provider: FELIPE BUTLER Reason For Exam: diabetic right foot ulcer Place consult to:: collins Notified:: PLEASE CALL MD IN AM Was contact made?: No 02/17/17 11:33 Consult to Case Management [CONS] Routine Services Needed at Discharge: Other Notified:: yes Additional Physician Instructions: LTAC Placement Primary care physician: DIESEL POWER SHOVEL OPERATOR Hospitalization Reason for admission: cellulitis Condition: Stable Hospital course: Patient is a 76 year old male with HTN, Spinal disorder carpal tunnel surgery bilaterally, Presented with pain and swelling with foul smelling right lower ext. on admission the patient was diagnosed with cellulitis of the right possible osteomyelitis although x-ray showed no evidence of osteo-MRI could not be obtained as his feet could not fit into the machine. Surgical consult was obtained for local culture and they recommended a debridement in addition and in agreement with ID for a superimposed soft tissue infection with abscess in the patient's with chronic lymphedema and elephantiasis verrucose. The patient' s family did take a picture of the fibrous foods consented to the son who is a phonograph cartridge assembler in [place] and he recommended the father to another facility, LTAC in [place] for wound care transferred and wants conservative management. Patient was treated with 2 out of the antibiotics case management was able to get approval for transfer to an LTAC and the patient was transferred to the LTAC in stable condition. patient and family understands that we are capable of treating this patient and have provided all the specialist needed but still refused. Discharge diagnosis Right foot/ankle chronic lymphedema/elephantiasis verrucosa with most likely superimposed soft tissue infection / heel abscess? Acute on chronic renal failure secondary to vasomotor nephropathy Hypernatremia and hyperchloremia Hypertension Bradycardia Disposition: DC/TX-63 MEDICARE CERT LT Time spent for discharge: 35 MINS Core Measure Documentation - Palliative Care Palliative Care/ Comfort Measures: Not Applicable - Core Measures Any of the following diagnoses?: none - VTE Discharge Requirements Deep Vein Thrombosis/Pulmonary Embolism Present on Admission: No Exam - Physical Exam Narrative exam: General appearance: Present: no acute distress, well-nourished - EENT Eyes: PERRL, EOM intact Ears: bilateral: normal - Neck Neck: supple, normal ROM - Respiratory Respiratory effort: normal Respiratory: bilateral: CTA - Breasts Breasts: swelling - Cardiovascular Rhythm: regular Heart Sounds: Present: S1 & S2. Absent: gallop, rub Extremities: pulses intact, No edema, Full ROM Extremity abnormal: other (extensive skin infection of the right foot and hyperremia of the left) - Gastrointestinal General gastrointestinal: Present: soft, non-tender, non-distended, normal bowel sounds - Genitourinary Male genitourinary: normal - Integumentary Integumentary: clear, warm, dry - Musculoskeletal Musculoskeletal: 1, strength equal bilaterally - Neurologic Neurologic: moves all extremities - Psychiatric Psychiatric: memory intact, appropriate mood/affect, intact judgment & insight - Constitutional Vitals: Temp Pulse Resp BP Pulse Ox 99.9 F H 83 22 148/75 95 02/18/17 07:47 02/18/17 11:06 02/18/17 07:47 02/18/17 11:06 02/18/17 07:47 Plan Activity: advance as tolerated, up only with assistance Diet: renal Special Instructions: record daily weights, record daily BP diary Additional Instructions: Needs to follow with wound care physician, phonograph cartridge assembler Follow up with: PRIMARY CARE,MD [Primary Care Provider] - 3-5 Days Prescriptions: Ulwnbbafpsco-Uxni-Rjzeacph,Iso [Zosyn 2.25 gm/50 ml Galaxy Bag] 2.25 gm IV Q6HR #10 itz
[2017-02-18] MEDS ORDERED: CUBICIN IV SCH (12:00)
[2017-02-18] MEDS ORDERED: NACL 0.9% IV SCH (12:00)
[2017-02-18 12:08] VITALS: BP 149/83
--- NOTE | 2017-02-18 13:13 | Query-Kidney Disease ---
Karla Luke____Vivian Date:___02/18/2017 Storm Chaser/CDS:___Uyen Phone#:___[phone] Exercise your independent professional judgment when responding to query. Questions asked do not imply a particular answer is desired or expected. We greatly appreciate your clarification on this issue. Clinical Documentation States: 76 Year old male was admitted on 02/16/2017 due to cellulitis and concern for osteomyelitis. The discharge summary states "Acute on chronic renal failure - Iv hydration. nephrology following." Clinical Findings Show: 02/15 02/16 02/17 02/18 Creatinine 2.3 2.1 1.9 1.9 GFR: 42 Please Clarify if you mean: Acute Renal Failure with or due to: [ ] Tubular Necrosis [ ] Cortical Necrosis [ ] Shock Kidney [ X] Vasomotor Nephropathy [ ] Lower Tubular Nephrosis [ ] Renal Tubular Stasis [ ] Tubular Nephrosis [ ] Medullary Necrosis [ ] Acute Renal Failure (unspecified) [ ] Other: [ ] Comment/Explanation: Chronic Kidney Disease (Please [place] applicable stage) 3 Stages Description GFR [ ] CKD Stage 1 90 mL/min or more [ ] CKD Stage 2 Mild decrease in Kidney function 60 to 89 mL/min [X ] CKD Stage 3 Moderate decrease in kidney function 30-59 [ ] CKD Stage 4 Severe decrease in kidney function 15-29 [ ] CKD Stage 5 Kidney failure; requiring dialysis or transplantation <15 [ ] ESRD Patient requiring dialysis for > 3 months or kidney transplant irrespective of level of GFR; Applicable for 1 year after kidney transplant [ ] Other: [ ] Comment/Explanation: Present on Admission: [ Y] Yes (Y) [ ] Clinically undeterminable (W) [ ] No (N) Please also document response in your Progress Notes and/or Discharge Summary and indicate if the condition was present on admission MTDD
[2017-02-18] MEDS ORDERED: VANCOMYCIN 1,250 MG in NACL 0.9% 250ML 250 ML IV SCH (14:00)
[2017-02-20 01:07] LABS: Abnormal Protein Band 1 0.5 g/dL; Albumin 3.3 g/dL (3.8-4.8); Gamma Globulin 1.2 g/dL (0.8-1.7)
== END 2017-02-18 14:42 | DRG 602 ==
LOC: ED 17:27 → 3A 02-16 02:36
PROVIDERS: ADMIT Internal Medicine; ATTEND Internal Medicine
DX: L03.115 Cellulitis of right lower limb (principal); N17.0 Acute kidney failure with tubular necrosis; E87.0 Hyperosmolality and hypernatremia; L02.611 Cutaneous abscess of right foot; Z68.41 Body mass index [BMI] 40.0-44.9, adult; I12.9 Hypertensive chronic kidney disease with stage 1 through stage 4 chronic kidney disease, or unspecified chronic kidney disease; E66.01 Morbid (severe) obesity due to excess calories; I89.0 Lymphedema, not elsewhere classified; Z88.8 Allergy status to other drugs, medicaments and biological substances; N18.3 Chronic kidney disease, stage 3 (moderate); Z53.29 Procedure and treatment not carried out because of patient's decision for other reasons
CPT/HCPCS: 36415; 71010; 76770; 80048; 80053; 80202; 81001; 82140; 82805; 82962; 83880; 84165; 85025; 85610; 85652; 86140; 87040; 87086; 90686; 96365; 96366; A6260; J1644; J2543; J3370; J7030; J7040; J7050